=== PATIENT | male | born 1950 | race Caucasian/White ===

== ENCOUNTER 2018-03-11 15:38 | Inpatient (IN) | payer MEDICARE ==
[~2018-03-11] VITALS: Ht 188 cm; Wt 104.5 kg
--- NOTE | ~2018-03-11 | EC ---
PATIENT:RAMSES BARAHONA DATE OF SERVICE: 03/11/18 SEX: M MEDICAL RECORD: [id number] DATE OF : 54 LOCATION:D.M2 D.210 AGE OF PATIENT: 67 ADMISSION DATE: 03/11/18 REFERRING PHYSICIAN: INTERPRETING PHYSICIAN: DANIA PENA MD ECHOCARDIOGRAM REPORT ECHO CHARGES 4 ECHO COMPLETE Date: 03/13 CLINICAL DIAGNOSIS: PE/EVAL RV ECHOCARDIOGRAPHIC MEASUREMENTS (adult normal given) AC root (d.<3.7cm) 3.7 cm LV Septum d (<1.2 cm> 1.5 cm Valve Excursion 2.0 cm LV Septum (systole) 1.7 cm Left Atria (s.<4.0cm> 3.6 cm LVPW d(<1.2cm) 1.4 cm RV (d.<2.3cm) 4.4 cm LVPW (sytole) 1.9 cm LV diastole(<5.6CM) 5.5 cm MV E-F(>70mm/sec) cm LV systole 4.1 cm LVOT Diameter 2.1 cm MV exc.(>10mm) 1.4 cm Est.ejection fraction (50-75%) % DOPPLER: LVIT cm/sec A 84.0 cm/sec E 63.0 cm/sec LA cm/sec RVSP 34 mmHg LVOT 101 cm/sec AOP1/2T m/s Asc. Ao 137 cm/sec RVOT 101 cm/sec RA cm/sec PA 127 cm/sec AV Gradient Peak 7.46 mmHg AV Mean 4.47 mmHg AV Area 1.9 cm MV Gradient Peak 3.95 mmHg MV Mean 1.64 mmHg MV Area cm COMMENTS: Configuration Engineer: Tommy ALVAREZ Sheet Metal Duct Installer: 1 Dr. Pena TAPE# PACS Pericardial Effusion N DATE OF SERVICE: 03/13/2018 FINDINGS: 1. Left ventricular chamber size is within normal limits. Left ventricular systolic function is normal. Overall ejection fraction estimated at 60%. 2. The left atrium is mildly dilated at 4.2 cm. Right atrium and right ventricle chamber sizes are as well mildly dilated. 3. Valvular structures have normal structure and motion. 4. Doppler interrogation only reveals mild aortic insufficiency. No other valvular insufficiency or stenosis. ECHOCARDIOGRAM REPORT [id number] RAMSES BARAHONA 5. No evidence of pericardial effusion or left ventricular thrombus. 6. No cardiac source of neurologic emboli. TRANSINT:[id number] Voice Confirmation ID: [id number] DOCUMENT ID: [id number] DANIA PENA MD at 1806 CC: [id number] DICTATION DATE: 03/13/18 1149 RN BEHAVIORAL HEALTH: 03/13/18 1226 ADM IN [place] [id number] [place] [address]
--- NOTE | ~2018-03-11 | HEMODYNAMI ---
PATIENT:RAMSES BARAHONA MEDICAL RECORD: [id number] : 54 LOCATION:D. D.2109 ADMISSION DATE: 03/11/18 Generatedon:03/12/201814:01 Patient name: RAMSES BARAHONA Patient #: [id number] SSN: DO B: 1950 Date of study: 03/12/2018 Page: Of Hemodynamic Procedure Report Patient Data Patient Demographics Procedure consent was obtained First Name: RAMSES Gender: Male Last Name: JUN : 1950 Middle Initial: D Age: 67 year(s) Patient #: [id number] Race: Unknown Additional ID: [id number] Contact details [address]: [address] [place] [address] State: [place] City: [place] Zip code: [address] Admission Admission Data Admission Date: 03/11/2018 Admission Time: 17:57 Room #: D.2109 Procedure Procedure Types Cath Procedure Peripheral Cath Diagnostic Procedure Miscellaneous Procedure Description Procedure Date Procedure Date: 03/12/2018 Procedure Start Time: 13:42 Procedure Staff Name Function Amado Avendano MD Performing Physician Yaakov Moran RT Monitor Yaakov Moran RT Scrub Winston Garay RN Nurse Procedure Data Cath Procedure Fluoroscopy Diagnostic fluoroscopy Total fluoroscopy Time: 0.3 time: 0.3 min min Diagnostic fluoroscopy Total fluoroscopy dose: 7 dose: 7 mGy mGy Procedure Medications Medication Administration Route Dosage Lidocaine 1% added to field 20 Heparin Flush Bag added to field 1 bags (1000units/500ml NS) Hemodynamics Rest Pre Cath Intra NCS Post Cath Medications Time Medication Route Dose Verified Delivered Reason Notes Effec tiveness by by 13:31:15 Lidocaine 1% added 20ml Amado Fischer used for to vial Romana Avendano MD procedure field 13:31:27 Heparin Flush added 1 Amado Fischer used for Bag to bags Romana Avendano MD procedure (1000units/500ml field NS) Procedure Log Time Note 13:29:04 Use device set PICC 13:29:05 SHIELD Sorbaview ([id number]) opened to sterile field. 13:29:06 Sterile Angiographic Pack opened to sterile field. 13:29:07 Bag Decanter (2001S) opened to sterile field. 13:29:11 PICC 13:29:13 Time tracking: Regular hours (M-F 7:00 - 5:00) 13:29:17 Yaakov Moran RT (R) (CV) sent for patient. Start room use. 13:29:33 Patient received from [place] to IR Alert and oriented. Tansferred to table in Supine position. 13:29:36 Signed procedure consent form obtained from patient. 13:29:38 Pre-procedure instructions explained to patient. 13:29:41 Pre-op teaching completed and patient verbalized understanding. 13:29:47 Patient pain scale 0/10 no pain. 13:31:15 Lidocaine 1% 20ml vial added to field was administered by Amado Avendano MD; used for procedure; 13:31:27 Heparin Flush Bag (1000units/500ml NS) 1 bags added to field was administered by Amado Avendano MD; used for procedure; 13:41:16 Right Arm area was prepped with chlora-prep and draped in sterile fashion 13:41:26 --------ALL STOP TIME OUT------ 13::27 Final Timeout: patient, procedure, and site verified with staff and physician. All members of the team are in agreement. 13:41:38 Sharps counted by scrub and verified by R.N. 13:41:50 Procedure started. 13:41:51 Full Disclosure recording started 13:42:06 Local anesthetic to right arm with Lidocaine 1% by Amado Avendano MD.INITIAL ACCESS ONLY 13:42:09 Venous access obtained using ultrasound guidance. 13:54:55 PICC line was trimmed to 40cm and advanced to the superior vena cava.Position verified under fluoroscopy. 13:57:06 Procedure ended.(Physican Out) 13:59:26 Fluoroscopy time 00.30 minutes. 13:59:29 Fluoroscopy dose: 7 mGy 13:59:29 Flurop Dose total: 7 13:59:32 Insertion/operative site no bleeding no hematoma. 13:59:44 Post right arm:stable 13:59:48 PowerPICC 5Fr double lumen catheter opened to sterile field. 13:59:53 Procedure and supply charges have been captured, reviewed, submitted and are correct. 14:00:26 Report given to [facility]. 14:00:31 Patient transfered to [facility] with Bed. Device Usage Item Name Manufacture Quantity Catalog Hospital Part Current Minimal Lot# / Number Charge Number Stock Stock Serial# Code SHIELD [employer] 1 [id number] Sorbaview ([id number]) Sterile Cardinal 1 [id number] Angiographic Health Pack Bag Decanter Microtek 1 [id number] (2001S) [employer] PowerPICC Bard 1 [id number] 5 5Fr double lumen catheter Signature Audit [place] Time Signature Unsigned Intra-Procedure 03/12/2018 Yaakov 2:01:12 PM Luisa RT (R) (CV) Signatures Monitor : Yaakov Signature : Liusa RT Date : Time : [place] [address]
[2018-03-11 16:12] LABS: BASOPHILS 0.2 % (0-2); EOSINOPHILS 1.4 % (0-7); HEMATOCRIT 41.7 % (42.0-54.0); HEMOGLOBIN 14.4 g/dL (13.5-17.5); IMMATURE GRANULOCYTES 0.7 % (0-5); LYMPHOCYTES 12.5 % (15-50); MCH 31.3 pg (26.0-34.0); MCHC 34.5 g/dL (31.0-37.0); MCV 90.7 fL (80.0-100.0); MEAN PLATELET VOLUME 10.2 fL (7.4-10.4); MONOCYTES 10.2 % (2-11); PLATELET COUNT 155 10x3/uL (130-400); RDW 12.9 % (11.5-14.5); WBC 14.6 10x3/uL (4.8-10.8)
[2018-03-11 16:50] LABS: ALBUMIN 3.2 g/dL (3.4-5.0); ANION GAP 9.4 mmol/L (8-16); BILIRUBIN - TOTAL 1.3 mg/dL (0.2-1.3); CARBON DIOXIDE 31.1 mmol/L (21.0-32.0); CREATININE - SERUM 1.2 mg/dL (0.6-1.3); POTASSIUM - SERUM 3.5 mmol/L (3.5-5.1)
[2018-03-11 20:46] VITALS: BP 133/82
[2018-03-12] VITALS (7 sets, daily range): BP systolic 121–148; BP diastolic 67–82; Ht 188 cm; Wt 104.5 kg
[2018-03-12 17:02] LABS: APPEARANCE CLEAR (CLEAR); BILIRUBIN NEGATIVE (NEGATIVE); COLOR DK YELLOW (YELLOW); GLUCOSE NEGATIVE (NEGATIVE); KETONE NEGATIVE (NEGATIVE); NITRITE NEGATIVE (NEGATIVE); PROTEIN TRACE mg/dL (NEGATIVE); SPECIFIC GRAVITY 1.015 (1.005-1.020); UROBILINOGEN NORMAL (NORMAL)
[2018-03-13 00:37] VITALS: BP 128/70
[2018-03-13 05:29] VITALS: BP 133/81
[2018-03-13 07:27] LABS: ANION GAP 8.5 mmol/L (8-16); CALCIUM 7.4 mg/dL (8.5-10.1); CARBON DIOXIDE 31.9 mmol/L (21.0-32.0); CREATININE - SERUM 1.1 mg/dL (0.6-1.3); POTASSIUM - SERUM 3.4 mmol/L (3.5-5.1)
[2018-03-13 07:46] LABS: BASOPHILS 0.1 % (0-2); EOSINOPHILS 1.2 % (0-7); HEMATOCRIT 36.4 % (42.0-54.0); HEMOGLOBIN 12.6 g/dL (13.5-17.5); IMMATURE GRANULOCYTES 0.8 % (0-5); LYMPHOCYTES 9.7 % (15-50); MCH 31.1 pg (26.0-34.0); MCHC 34.6 g/dL (31.0-37.0); MCV 89.9 fL (80.0-100.0); MEAN PLATELET VOLUME 10.5 fL (7.4-10.4); MONOCYTES 11.3 % (2-11); NEUTROPHILS 76.9 % (40-80); RBC 4.05 10x6/uL (4.20-6.10); RDW 12.8 % (11.5-14.5); WBC 14.4 10x3/uL (4.8-10.8)
[2018-03-13 07:51] LABS: PLATELET COUNT 191 10x3/uL (130-400)
[2018-03-13 13:06] VITALS: BP 123/73
[2018-03-13 20:33] VITALS: BP 136/79
[2018-03-14 05:25] LABS: BASOPHILS 0.2 % (0-2); EOSINOPHILS 1.6 % (0-7); HEMATOCRIT 33.5 % (42.0-54.0); HEMOGLOBIN 11.8 g/dL (13.5-17.5); IMMATURE GRANULOCYTES 0.9 % (0-5); LYMPHOCYTES 7.9 % (15-50); MCH 31.1 pg (26.0-34.0); MCHC 35.2 g/dL (31.0-37.0); MCV 88.4 fL (80.0-100.0); MONOCYTES 11.5 % (2-11); NEUTROPHILS 77.9 % (40-80); PLATELET COUNT 192 10x3/uL (130-400); RBC 3.79 10x6/uL (4.20-6.10); RDW 12.7 % (11.5-14.5); WBC 12.9 10x3/uL (4.8-10.8)
[2018-03-14 05:38] VITALS: BP 142/78
[2018-03-14 06:06] LABS: ANION GAP 11.4 mmol/L (8-16); CALCIUM 7.2 mg/dL (8.5-10.1); CARBON DIOXIDE 30.2 mmol/L (21.0-32.0); CREATININE - SERUM 1.2 mg/dL (0.6-1.3); POTASSIUM - SERUM 3.6 mmol/L (3.5-5.1)
[2018-03-14 14:48] VITALS: BP 127/77
[2018-03-14 21:17] VITALS: BP 146/81
[2018-03-15 05:16] LABS: BASOPHILS 0.2 % (0-2); EOSINOPHILS 1.5 % (0-7); HEMATOCRIT 32.6 % (42.0-54.0); HEMOGLOBIN 11.3 g/dL (13.5-17.5); IMMATURE GRANULOCYTES 1.5 % (0-5); LYMPHOCYTES 10.9 % (15-50); MCH 30.9 pg (26.0-34.0); MCHC 34.7 g/dL (31.0-37.0); MCV 89.1 fL (80.0-100.0); MEAN PLATELET VOLUME 9.6 fL (7.4-10.4); NEUTROPHILS 73.9 % (40-80); PLATELET COUNT 226 10x3/uL (130-400); RBC 3.66 10x6/uL (4.20-6.10); RDW 12.7 % (11.5-14.5)
[2018-03-15 05:25] LABS: ANION GAP 8.8 mmol/L (8-16); CALCIUM 7.6 mg/dL (8.5-10.1); CARBON DIOXIDE 31.8 mmol/L (21.0-32.0); CREATININE - SERUM 1.1 mg/dL (0.6-1.3); POTASSIUM - SERUM 3.6 mmol/L (3.5-5.1)
[2018-03-15 06:35] VITALS: BP 162/76
[2018-03-15 07:37] LABS: INR 1.06 (0.85-1.17); PROTIME 13.4 SECONDS (11.6-15.0)
== END 2018-03-15 07:31 | disposition left against medical advice (07) | DRG 299 ==
LOC: D.ER 15:38 → D.M2 17:57
PROVIDERS: Emergency Medicine; General Practice; Internal Medicine Nephrology
PROC: B244ZZZ Ultrasonography of Right Heart (ICD-10-PCS; 2018-03-12)
PROC: 02H633Z Insertion of Infusion Device into Right Atrium, Percutaneous Approach (ICD-10-PCS; principal; 2018-03-12 13:30)
DX: I82.412 Acute embolism and thrombosis of left femoral vein (principal); I26.99 Other pulmonary embolism without acute cor pulmonale; F17.213 Nicotine dependence, cigarettes, with withdrawal; Z86.19 Personal history of other infectious and parasitic diseases; K21.9 Gastro-esophageal reflux disease without esophagitis; I10 Essential (primary) hypertension; K59.00 Constipation, unspecified